=== PATIENT | male | born 1965 | race Caucasian/White ===

== ENCOUNTER 2021-12-06 17:21 | Emergency (ER) | payer BC, SELFPAY ==
[2021-12-06 17:38] VITALS: BP 146/96; PULSE 85; RESP 16; TEMP 37; O2SAT 95; BMI 30.3
--- NOTE | 2021-12-06 18:19 | ED.EAR ---
HPI - Ear Problem General Chief complaint: Ear Problems Stated complaint: left ear pain/bleeding Time Seen by Provider: 12/06/21 17:46 Source: patient Mode of arrival: ambulatory Limitations: no limitations History of Present Illness HPI Narrative: Patient is a 56-year-old male being evaluated for bleeding from the left ear and decreased hearing. He reports earlier today while inserting a Q-tip he had some initial discomfort and bleeding from the ear which subsided. Reports his hearing was fine throughout the day. Upon returning home today from work he developed bleeding again and significant decreased hearing to the left. Denies any past history of ruptured tympanic membrane. Denies prior concerns of pain or drainage from the ear. Denies fevers, chills, nasal congestion, sore throat, drainage or pain from the right ear. Related Data Previous Rx's Medication Instructions Recorded ciprofloxacin 0.3 %-dexamethasone 4 drp OTIC (EARS) Q12H 7 Days #7.5 12/06/21 0.1 % ear drops,suspension ml (Ciprodex) Allergies Allergy/AdvReac Type Severity Reaction Status Date / Time No Known Allergies Allergy Verified 12/06/21 17:43 Review of Systems Review of Systems: Constitutional: No weight loss, fever, chills, weakness or fatigue. Skin: No rash or itching. Ear: Left ear bloody drainage and decreased hearing Cardiovascular: No chest pain, chest pressure or chest discomfort. No palpitations or pedal edema. Respiratory: No shortness of breath, cough or sputum production. Gastrointestinal: No anorexia, nausea, vomiting or diarrhea. No abdominal pain. Genitourinary: No burning micturition. No urinary frequency or incontinence. Musculoskeletal: No muscle pain, back pain, joint pain or stiffness. Psychiatric: No depression or anxiety. Yes all other systems are reviewed and are negative [facility] Past Medical History Attestation statement: The following information was validated with the patient. Source: old records reviewed Medical History Hypertension Social History Social History Advance Directives: No Advance Directives Information Provided: No Physical Exam Vital Signs: Vital Signs: Last Vital Signs Temp 98.6 F 12/06/21 17:38 Pulse 85 12/06/21 17:38 Resp 16 12/06/21 17:38 BP 146/96 H 12/06/21 17:38 Pulse Ox 95 12/06/21 17:38 BMI result Body Mass Index 30.3 Vital signs have been reviewed and appeared to be correct. Blood pressure elevated 146/96? Heart rate normal.? Respiration rate normal. Temperature normal.? Oxygen saturation normal. Appearance: Alert.?Oriented to person, place and time. No acute distress.?Normal affect. Head: Normocephalic, atraumatic. No head, sinus or TMJ tenderness.? Eyes: Sclera white, conjunctiva pink. PERRL, 3 mm bilaterally. Ears: Left ear canal with bloody drainage, TM not visible suspect rupture. Right ear canal clear, TM visible with good cone of light.? Nose: Nasal mucosa pink and moist with midline septum, nares patent bilaterally.? Mouth/ Throat: Pharynx normal? Neck: Normal inspection.? Neck supple.?? CVS: Heart sounds normal. Normal heart rate and rhythm.? Pulses normal.?? Respiratory: No respiratory distress.? Lung sounds clear to auscultation bilaterally?? Abdomen: Soft and non-tender. ?? Skin: Skin warm and dry.? Normal skin color.? Normal skin turgor.?? Extremities: No lower extremity edema.? Neuro: Moves all extremities spontaneously. Sensation intact bilaterally. No focal neuro deficits. Ambulates with normal steady gait. Course Course Course Narrative: Patient is a 56-year-old male being evaluated for drainage from the left ear and decreased hearing. Physical exam consistent with ruptured tympanic membrane. Discussed plan of care for discharge home with new prescription for Ciprodex and discussed water avoidance precautions no swimming, and to insert the ear plug or cotton ball with Vaseline while showering to avoid water in the canal, reviewed not to insert object into the ear canal increases risk for potential reaction. Advised follow-up most will heal spontaneously in 4-6 weeks, however will have him follow-up with ENT specialist within 1 week. Discharge Plan Discharge Clinical Impression: Rupture of left tympanic membrane Patient Disposition: Home, Self-Care Instructions: Ruptured Eardrum (ED) Additional Instructions: You have ruptured your ear drum on the left side. Avoid swimming, use ear plugs or cotton ball with Vaseline to the left ear while showering to avoid water entering your ear canal. Use ear drops to left ear as prescribed and finish course. Please contact ear nose throat specialist Thursday morning to schedule follow-up appointment in 5 days. You may return to the emergency department with any new or worsening symptoms or concerns. Prescriptions: New ciprofloxacin-dexamethasone [Ciprodex] 0.3-0.1 % drops,suspension 4 drp otic (ears) Q12H 7 Days Qty: 7.5 0RF Referrals: Brennan Florentino [Physician] - 5 days Interventions: ED Discharge Assessment Last Done: 12/06/21 18:47 Discharge Date/Time: 12/06/21 18:49
== END 2021-12-06 18:49 | disposition home or self-care (01) ==
PROVIDERS: Emergency Provider Emergency Medicine
DX: H72.92 Unspecified perforation of tympanic membrane, left ear (principal); H92.02 Otalgia, left ear; I10 Essential (primary) hypertension
CPT/HCPCS: 99283

== ENCOUNTER 2023-12-05 07:10 | Emergency (ER) | payer BC, SELFPAY ==
--- NOTE | ~2023-12-05 | CT_ITS ---
CT TEMPORAL BONES WITHOUT IV CONTRAST INDICATION: Left ear pain/infection since September. COMPARISON: None available. TECHNIQUE: Multidetector CT acquisitions of the temporal bones was obtained without IV contrast. This CT examination was performed using dose optimization techniques as appropriate, variously including the following: *Automated exposure control *Adjustment of mA and/or kV according to patient size (this includes techniques or standardized protocols for targeted exams where dose is matched to indication/reason for exam; i.e. extremities or head) *Use of iterative reconstruction technique FINDINGS: Soft tissue nearly completely opacifies the left bony external auditory canal which should be correlated with direct visual inspection. This could reflect cerumen or other pathology. There is a small left mastoid tip effusion without bony erosion. The left middle ear cavity remains clear and there is retraction of the left tympanic membrane. The right mastoid air cells and the right middle ear cavity are clear. Degenerative changes involving the TMJs bilaterally. There is chronic traumatic deformity of the right lamina papyracea. Mild mucosal thickening throughout the imaged paranasal sinuses. There is leftward deviation of the nasal septum and there is a michael bullosa within the right middle turbinate. CT/CT mastoid IMPRESSION: - Soft tissue nearly completely opacifies the left bony external auditory canal which should be correlated with direct visual inspection. This could reflect cerumen or other pathology. There is a small left mastoid tip effusion without bony erosion. The left middle ear cavity remains clear and there is retraction of the left tympanic membrane. - The right mastoid air cells and the right middle ear cavity are clear. - Degenerative changes involving the TMJs bilaterally. - There is leftward deviation of the nasal septum and there is a michale bullosa within the right middle turbinate.
[2023-12-05 07:18] VITALS: BP 143/99; PULSE 87; RESP 18; TEMP 36.6; O2SAT 98; BMI 29.7
--- NOTE | 2023-12-05 09:19 | ED.EAR ---
HPI - Ear Problem General Chief complaint: Ear Problems Stated complaint: l ear issue Time Seen by Provider: 12/05/23 07:27 Source: patient Mode of arrival: ambulatory Limitations: no limitations History of Present Illness HPI Narrative: 58-year-old male presenting to the ER with complaints with complaints of left ear pain since the end of September. He reports he went to the urgent care 3 times since September and has been given the same prescription for the past 3 visits at the urgent care where he reports he was given amoxicillin plain amoxicillin with some drops he is unsure the name and he does not feel like they are working at this time. He is concerned due to he has been there 3 times and they continue to give him the same antibiotics despite them not working. He tried to call Dr. Florentino's ENT office although he can not get in until January. He also tried to call his PCP and they do not have any appointments. Denies Trauma; FB; FCS; Tinnitus; Trismus; Rash; H/A; Runny Nose; Dysphagia; Swelling; Bleeding; Cough; Focal Weakness, Numbness; Vertigo MD Complaint: ear pain and decreased hearing Location: left ear Duration: constant Severity: moderate Relieving factors: nothing Exacerbating factors: nothing Discharge from ear: no Associated symptoms ear: decreased hearing and external ear tenderness Treatment prior to arrival: eardrops and other (Patient was prescribed ear drops he is unsure the name and all amoxicillin 3 times in the past month from the urgent care which he has completely complete) Related Data Previous Rx's Medication Instructions Recorded ciprofloxacin 0.3 %-dexamethasone 4 drp otic (ears) Q12H 7 days #7.5 12/06/21 0.1 % ear drops,suspension mL (Ciprodex) amoxicillin-potassium clavulanate 1 tab PO BID otitis media 10 days 12/05/23 1,000 mg-62.5 mg tablet,ext.rel #20 tabs 12hr (Augmentin XR) ciprofloxacin 0.3 %-dexamethasone 4 drp otic (ear) left BID otitis 12/05/23 0.1 % ear drops,suspension externa 7 days #7.5 mL Allergies Allergy/AdvReac Type Severity Reaction Status Date / Time No Known Allergies Allergy Verified 12/05/23 07:21 Review of Systems Review of Systems: Constitutional : No Weight loss, No Fever, No Chills, No Night Sweats, No Fatigue, No Malaise ENT/Mouth : No Hearing loss, + Ear Pain, No Nasal Congestion, No Sinus Pain, No Hoarseness, No sore throat, No Rhinorrhea, No Swallowing Difficulty Eyes: No Eye Pain, No Swelling, No Redness, No Foreign Body, No Discharge, No Vision Changes Cardiovascular : No Chest Pain, No SOB, No Dyspnea on Exertion, No Orthopnea, No Edema, No Palpitations Respiratory : No Cough, No Sputum, No Wheezing, No Smoke Exposure, No Dyspnea Gastrointestinal : No Nausea, No Vomiting, No Diarrhea, No Constipation, No abdominal Pain, No Hematochezia, No Melena Genitourinary : no irregular bleeding, No Dysuria, No Urinary Frequency, No Hematuria, No Urinary Incontinence, No Urgency, No Flank Pain, No Urinary Flow Changes, No Hesitancy Musculoskeletal : No joint pain, No Myalgias, No Joint Swelling Skin : No Skin Lesions, No rash Neuro : No Weakness, No Numbness, No Paresthesias, No Loss of Consciousness, No Dizziness, No Headache Psych : No Anxiety/Panic, No Depression, No SI/HI/AH/VH, No Social Issues, Heme/Lymph: No Bruising, No Bleeding,No Lymphadenopathy Endocrine : No Polyuria, No Polydipsia, No Temperature Intolerance Yes all other systems are reviewed and are negative [facility] Past Medical History Attestation statement: The following information was validated with the patient. Source: old records reviewed and nursing notes reviewed Medical History Hypertension Social History Social History Advance Directives: No Advance Directives Information Provided: No Physical Exam Vital Signs: Vital Signs: Last Vital Signs Temp 97.8 F 12/05/23 07:18 Pulse 87 12/05/23 07:18 Resp 18 12/05/23 07:18 BP 143/99 H 12/05/23 07:18 Pulse Ox 98 12/05/23 07:18 O2 Del Method Room Air 12/05/23 07:18 BMI result Body Mass Index 29.7 Vital signs reviewed. Blood pressure normal. Pulse normal. Respiration normal. Oxygen normal. Temperature normal. Appearance: Alert. Oriented X3. No acute distress. Head: Normal external exam. Normocephalic. Atraumatic. Eyes: PERRLA. EOMI. Conjunctiva and sclera normal. Eyelids normal. ENT: EAC normal. Right TM's Normal. Left external ear canal mild erythematous with edema and fluffy exudate with cerumen consistent with otitis externa. Tympanic membrane intact no perforation noted. He did have some pinna and tragus tenderness. No mastoid tenderness. Pharynx normal. Uvula midline. Moist mucous membranes. No lesions/ulcerations or masses noted on the tongue. Normal voice. No trismus noted. No drooling noted. No muffled voice noted. Neck: Normal inspection. Neck supple. FROM. No adenopathy. Thyroid Normal. No meningeal signs. CVS: Normal heart rate and rhythm. Heart sound normal. Pulses normal throughout. No murmurs/rales/gallops. Respiratory: No respiratory distress. Painless inspiration. Back: Full range of motion noted. Skin: Skin warm and dry. Normal skin color. Normal skin turgor. No rashes/lesions/lacerations noted. Extremities: Extremities exhibit normal range of motion and nontender. Neuro: Oriented X 3. No motor deficit. No sensory deficit. Reflexes normal. Normal steady gait. No focal neuro deficits noted. CN's II-XII intact bilaterally? Vascular: + radial pulses. Normal cap refill. No cyanosis noted to upper extremity nails Course Course Course Narrative: 58-year-old male presenting to the ER with what appears like otitis externa and otitis media. No tympanic membrane perforation. Patient is nondiabetic. He did have tragus and pinna tenderness although no mastoid tenderness. He does have some could now edema mild. Some cerumen although no cerumen impaction. Neck is soft nontender with full range of motion no meningeal signs. I was also concerned for mastoiditis due to the timeframe of the patient's symptoms and tenderness over the tragus and the pinna this therefore CT was obtained for the mastoid which was negative for mastoiditis. H and P not consistent epidural abscess, malignant otitis externa, TMJ, meningitis. Therefore at this time patient will be discharged with Augmentin as he reports he has not had Augmentin along with Ciprodex drops with instructions to follow-up with PCP/ENT and to return if any new or worsening symptoms. Patient understands agrees with this plan Medical Decision Making Medical Decision Making MDM Narrative: see course Differential Diagnosis Differential Diagnoses: The differential diagnosis associated with the presentation includes see course Independent Interpretation I performed an independent interpretation of an: CT Scan (I reviewed the CT scan of the mastoid myself and agreeable with re-evaluate report no acute findings) Radiology Impression Discussion of test interpretation with radiology: I have reviewed the radiologist's reading. Radiologist Impression: FINDINGS: Soft tissue nearly completely opacifies the left bony external auditory canal which should be correlated with direct visual inspection. This could reflect cerumen or other pathology. There is a small left mastoid tip effusion without bony erosion. The left middle ear cavity remains clear and there is retraction of the left tympanic membrane. The right mastoid air cells and the right middle ear cavity are clear. Degenerative changes involving the TMJs bilaterally. There is chronic traumatic deformity of the right lamina papyracea. Mild mucosal thickening throughout the imaged paranasal sinuses. There is leftward deviation of the nasal septum and there is a michael bullosa within the right middle turbinate. CT/CT mastoid IMPRESSION: - Soft tissue nearly completely opacifies the left bony external auditory canal which should be correlated with direct visual inspection. This could reflect cerumen or other pathology. There is a small left mastoid tip effusion without bony erosion. The left middle ear cavity remains clear and there is retraction of the left tympanic membrane. - The right mastoid air cells and the right middle ear cavity are clear. - Degenerative changes involving the TMJs bilaterally. - There is leftward deviation of the nasal septum and there is a michael bullosa within the right middle turbinate. Independent Historian Patient, medical records and nurse's no External Record Review External record reviewed: Inpatient record, Office record, Outpatient record, Prior outpatient labs, Prior outpatient radiology, Primary care record and Outside ED record All prior labs/imaging/EKG and notes that are accessible in our system reviewed by myself Prescription Management I considered prescription management with: Antibiotic Social Determinants Patient?s care significantly limited by Social Determinants of Health including: Other Social Determinant of Health Discharge Plan Discharge Clinical Impression: Otitis externa, Otitis media Patient Disposition: Home, Self-Care Instructions: Otitis Externa (ED), Otitis Externa (DC) Prescriptions: New amoxicillin-pot clavulanate [Augmentin XR] 1,000-62.5 mg tablet extended release 12 hr 1 tab PO BID 10 Days Qty: 20 0RF ciprofloxacin-dexamethasone 0.3-0.1 % drops,suspension 4 drp otic (ear) left BID 7 Days Qty: 7.5 0RF No Action ciprofloxacin-dexamethasone [Ciprodex] 0.3-0.1 % drops,suspension 4 drp otic (ears) Q12H 7 Days Qty: 7.5 0RF Referrals: Emil De La Rosa MD [Primary Care Provider] - 1 day Stand Alone Forms: Work/School Release
[2023-12-05] MEDS: Amoxicillin/Potassium Clav 875 MG TABLET PO (10:10)
[2023-12-05 10:17] VITALS: BP 125/76; PULSE 66; RESP 16; TEMP 36.3
== END 2023-12-05 10:18 | disposition home or self-care (01) ==
PROVIDERS: Emergency Provider Emergency Medicine; PCP Family Medicine
DX: H60.92 Unspecified otitis externa, left ear (principal); H66.92 Otitis media, unspecified, left ear; H92.02 Otalgia, left ear
CPT/HCPCS: 70481; 99282; 99284

== ENCOUNTER 2025-01-20 15:39 | Emergency (ER) | payer OTHER, SELFPAY ==
--- NOTE | ~2025-01-20 | CT_ITS ---
CLINICAL HISTORY: left cheek dental pain ?cellulitis v abscess CT maxillofacial with contrast Comparison: None Findings: No acute fractures. No dislocations. Temporomandibular joints are intact. No periapical lucencies to suggest odontogenic abscesses. Air-fluid levels in the maxillary sinuses concerning for acute sinusitis. Orbital contents within normal limits. Visualized intracranial contents are within normal limits. No foreign bodies. IMPRESSION: 1. No evidence for odontogenic abscess. 2. Acute maxillary sinusitis. This document has been electronically signed by: Adan Fenton MD on 01/20/2025 20:08:50
[2025-01-20 16:04] VITALS: BP 133/70; PULSE 127; RESP 18; TEMP 37.6; O2SAT 95; BMI 30.3
--- NOTE | 2025-01-20 16:04 | ED_ITS ---
HPI - URI/Sore Throat General Chief Complaint: General Medical Stated Complaint: ? sinus infection Time Seen by Provider: 01/20/25 18:01 Source: patient and family () Mode of arrival: ambulatory Limitations: no limitations History of Present Illness ED Provider: SHANTELL CAMACHO PA-C HPI Narrative: 59-year-old male presents to the ED today for evaluation of left cheek pain/pressure x4-5 months. He has been evaluated for this by his PCP and dentist multiple times over the last few months. He has completed approximately 3-4 courses of amoxicillin. He was most recently seen by his PCP on 12/01/2024 who suspected a sinus infection and prescribed him a 7 day course of Augmentin which she took to completion followed by another 10 day course of Amoxicillin on 01/02/25. He has been trialing Flonase once daily without improvement. Reports having xrays completed by his dentist. He was reportedly told that there was too much inflammation around the area and they could definitively say if the tooth appeared infected. He does have a follow-up with an welding setter in two weeks. Reports waking up this morning with increasing pressure to the left cheek with associated headache. He has not noticed any swelling around his upper or lower teeth. No noted drainage. Denies any trauma or injury to the face. He reports subjective fevers this morning. Reports taking Tylenol around 1030 this morning. Denies chills, sore throat, difficulty swallowing or opening his mouth, ear pain/discharge. Related Data Previous Rx's ?Medication ?Instructions ?Recorded ciprofloxacin 0.3 %-dexamethasone 4 drp otic (ears) Q12H 7 days #7.5 12/06/21 0.1 % ear drops,suspension mL (Ciprodex) amoxicillin-potassium clavulanate 1 tab PO BID otitis media 10 days 12/05/23 1,000 mg-62.5 mg tablet,ext.rel #20 tabs 12hr (Augmentin XR) ciprofloxacin 0.3 %-dexamethasone 4 drp otic (ear) left BID otitis 12/05/23 0.1 % ear drops,suspension externa 7 days #7.5 mL clindamycin HCl 300 mg capsule 300 mg PO Q8H 7 days #21 caps 01/20/25 Allergies Allergy/AdvReac Type Severity Reaction Status Date / Time No Known Allergies Allergy Verified 01/20/25 16:06 Review of Systems 2 Review of Systems: Yes all other systems are reviewed and are negative [facility] Past Medical History Attestation statement: The following information was validated with the patient. Source: old records reviewed, obtained from family () and nursing notes reviewed Medical History Hypertension Social History Social History Alcohol intake: current Alcohol intake frequency: a few times a month Smoked in Last 30 Days: No Use of substances other than those prescribed or required for medical reasons: No Advance Directives: No Advance Directives Information Provided: Yes Do you have a plan to hurt others: No Plan Physical Exam 2 Vital Signs: Vital Signs: Last Vital Signs Temp 100.4 F 01/20/25 19:35 Pulse 109 H 01/20/25 19:35 Resp 16 01/20/25 19:35 BP 93/55 L 01/20/25 19:35 Pulse Ox 98 01/20/25 19:35 O2 Del Method Room Air 01/20/25 19:35 BMI result Body Mass Index 30.3 tachycardic, low grade temp of 99.7F General: well appearing, in no acute distress. Skin: Warm, dry, intact. No rashes or lesions. Head: Normocephalic, atraumatic. EENT: Hearing is intact b/l. Conjunctiva clear. PERRLA. EOM intact + No facial edema. Tongue and lips wnl. multiple dental caries and poor dentition. left upper/lower teeth without localized periapical swelling to the buccal or lingual ginginva. No pointing. No active bleeding/ discharge. TTP. No palpable fluctuance. + mild edema to buccal mucosa. no palpab le fluctuance + Posterior oropharynx without erythema/ edema. Uvula midline. Controlling secretions and speaking in complete sentences + No submandublar, submental or cervical LAD. no anterior neck swelling. Cardiac: Chest wall symmetric. RRR Lungs: Normal respiratory effort without accessory muscle use. CTA bilaterally Ext: Upper and lower extremities atraumatic, without tenderness, deformity, swelling or erythema Neuro: AOx3. Normal speech. Ambulating with steady gait. Psych: Appropriate mood and affect. Responds appropriately to questions. Course Course Course Narrative: This is an RME performed by Tru Bass CNP: Additional HPI, ROS, PE not included below will be deferred to primary provider. Patient is a 59-year-old male who presents emergency department for evaluation. Reports over the past 4- 5 months he has been experiencing pressure to his left cheek. Has been seen numerous times with his primary care doctor who believes this is a sinus infection as well as his dentist who believes is an abscess. He has been on approximately 3-4 courses of amoxicillin. Most recent courses being day course of Augmentin, followed by 01/02/2025 a 10 day course of amoxicillin. Has been using Flonase 1 spray once daily. The amoxicillin ultimately helps to some degree but never fully resolves his symptoms. He arrives emergency department tachycardic with a pulse of 127, temp of 99.7 degrees orally. Reports subjective fever earlier today Plan: Serum labs, viral serologies Reevaluation(s) Reevaluation #1: 3050- -- CBC without leukocytosis. There is a left shift. Chemistry without acute electrolyte abnormality requiring intervention. BUN mildly elevated to 19 with normal creatinine. Lactic acid WNL at 1.4. Liver function around baseline. Negative COVID, flu, RSV. > at this time, patient does not meet SIRS criteria for sepsis > Toradol ordered for pain, will cover for suspected facial cellulitis with Unasyn > CT facial bones pending 2128 -- CT facial bones showing acute maxillary sinusitis bilaterally. No evidence to suggest odontogenic abscess/infection. > discussed results with patient and his . Vitals have stabilized. He has received Toradol, Tylenol and Unasyn along with IV fluids. He is well-appearing and in no acute distress. I did discuss case with my attending physician Dr. Trevino who agrees with outpatient treatment with clindamycin. He does not meet criteria for inpatient treatment at this time. Patient and are agreeable with this plan. Antibiotic sent to pharmacy. Patient has remained stable throughout ED visit today. Discussed worrisome signs and symptoms and when to return to the ED. All questions answered at this time. Patient is agreeable with disposition and stable for discharge. Medications Administered Discontinued Medications Generic Name Dose Route Start Last Admin Trade Name Freq PRN Reason Stop Dose Admin Ampicillin Sodium/Sulbactam 100 mls @ 200 mls/hr 01/20/25 18:20 01/20/25 19:04 Sodium 3 gm/ Sodium Chloride IV 01/20/25 18:49 200 mls/hr ONCE ONE Administration Sodium Chloride 1,000 mls @ 999 mls/hr 01/20/25 18:45 01/20/25 19:00 Ns IV 01/20/25 19:45 999 mls/hr .Q1H1M DARRIN Administration Iohexol 100 ml 01/20/25 19:31 01/20/25 19:31 Iohexol 350 Mg/Ml 100 Ml Infus..Btl IV 01/20/25 19:32 85 ml ONCE ONE Administration Ketorolac Tromethamine 15 mg 01/20/25 18:18 01/20/25 19:01 Ketorolac Tromethamine 15 Mg/Ml Vial IVPUSH 01/20/25 18:19 15 mg ONCE ONE Administration Medical Decision Making Medical Decision Making [facility] Narrative: 59-year-old male presents to the ED today for evaluation of left cheek pain/pressure x4-5 months. on exam, no facial edema. Tongue and lips wnl. multiple dental caries and poor dentition. left upper/lower teeth without localized periapical swelling to the buccal or lingual ginginva. No pointing. No active bleeding/ discharge. TTP. No palpable fluctuance. mild edema to buccal mucosa. no palpable fluctuance. posterior oropharynx without erythema/edema. Uvula midline. Controlling secretions and speaking in complete sentences. no submandublar, submental or cervical LAD. no anterior neck swelling. Mildly tender to percussion over the left maxillary sinus. No tenderness to right maxillary sinus or frontal sinus. Differential diagnosis includes dental/ periapical abscess/infection, apthous stomatitis, facial cellulitis, facial abscess, sinusitis. Unlikely mono, herpes, sialadenitis, sialolithiasis, MAINTENA[employer]CE [employer] OIL FIELD, retropharyngeal abscess, deep neck infection, osteomyelitis, lymphoma, ludwigs angina. Labs, viral serology obtained from triage. Plan to review. CT facial bones added. Toradol ordered for discomfort. Unasyn ordered for coverage. IV fluids ordered. Differential Diagnosis Differential Diagnoses: The differential diagnosis associated with the presentation includes as above. Admission/Observation Consideration of admission/observation: Escalation of care including admission/observation considered Admission considered, he does not meet criteria for admission Lab Data MDM Lab Attestation statement: I reviewed the patient's lab results. as above. 01/20/25 16:59 01/20/25 16:59 Labs: Lab Results 01/20/25 Range/Units 16:59 WBC 10.5 (4.8-10.8) X10*3/uL RBC 5.56 (4.60-5.80) X10*6/uL Hgb 15.7 (14.0-18.0) g/dl Hct 44.7 (42.0-52.0) % MCV 80.4 (80.0-98.0) fL MCH 28.2 (27.0-33.0) pg MCHC 35.1 (31.0-36.0) g/dl RDW 13.5 (11.0-16.0) % Plt Count 144 L (160-400) X10*3/uL MPV 11.0 (9.4-12.4) fL Immature Gran % (Auto) 0.5 H (0.0-0.4) % Neut % (Auto) 88.7 H (45-73) % Lymph % (Auto) 3.0 L (20-40) % [place] % (Auto) 7.1 (2-11) % Eos % (Auto) 0.2 (0-4) % Baso % (Auto) 0.5 (0-2) % Lymph # (Auto) 0.3 L (1.2-4.9) X10*3/uL [place] # (Auto) 0.7 (0.1-1.2) X10*3/uL Eos # (Auto) 0.0 (0.0-0.4) X10*3/uL Baso # (Auto) 0.1 (0.0-0.2) X10*3/uL Abs Immat Gran (auto) 0.05 H (0.00-0.03) X10*3/uL Absolute Neuts (auto) 9.3 H (2.0-8.3) x10*3/uL Absolute Nucleated RBC 0.000 (0.0-0.012) X10*3/uL Nucleated RBC % (auto) 0.0 (0.0-0.2) /100WBC Sodium 138 (135-145) mmol/L Potassium 3.4 (3.3-5.1) mmol/L Chloride 103 (96-108) mmol/L Carbon Dioxide 23 (22-29) mmol/L Anion Gap 15 (12-20) BUN 19 H (9-16) mg/dL Creatinine 1.36 (0.5-1.4) mg/dL Estim Creat Clear Calc 75.0 Estimated GFR 54 Random Glucose 122 H (60-115) mg/dL Lactic Acid 1.4 (0.5-2.0) mmol/L Calcium 9.1 (8.4-10.2) mg/dL Total Bilirubin 1.2 H (0.0-1.0) mg/dL AST 29 (5-37) U/L ALT 49 H (0-40) U/L Alkaline Phosphatase 59 (39-117) U/L Total Protein 7.6 (6.5-8.0) g/dL Albumin 4.4 (3.5-5.0) g/dL Influenza Type A (PCR) NEGATIVE (Negative) Influenza Type B (PCR) NEGATIVE (Negative) RSV RNA Qual (PCR) NEGATIVE (Negative) SARS-CoV-2 RNA (RT-PCR) NEGATIVE (Negative) Independent Interpretation I performed an independent interpretation of an: CT Scan Interpretation: ct facial bones with air-fluid levels to bilateral maxillary sinuses Radiology Impression Discussion of test interpretation with radiology: I have reviewed the radiologist's reading. Radiologist Impression: Procedure(s): CT facial bones w IV con Accession Number(s): [id number] cc: Emil De aL Rosa MD; Shantell Camacho~ Report Number: [id number]: Total DLP = 378.00 mGy-cm CLINICAL HISTORY: left cheek dental pain ?cellulitis v abscess CT maxillofacial with contrast Comparison: None Findings: No acute fractures. No dislocations. Temporomandibular joints are intact. No periapical lucencies to suggest odontogenic abscesses. Air-fluid levels in the maxillary sinuses concerning for acute sinusitis. Orbital contents within normal limits. Visualized intracranial contents are within normal limits. No foreign bodies. IMPRESSION: 1. No evidence for odontogenic abscess. 2. Acute maxillary sinusitis. Independent Historian Clinical information obtained from an independent historian. History obtained from or confirmed by: Spouse () External Record Review External record reviewed: Inpatient record Prescription Management I considered prescription management with: Pain Medication and Antibiotic (Clindamycin) Social Determinants Patient?s care significantly limited by Social Determinants of Health including: Other Social Determinant of Health Critical Care Time Critical Care Time Critical Care Time: Yes Total Critical Care Time: 31 Attestation: Critical care time in the amount of 31 minutes has been provided to the patient in terms of direct patient care, frequent reevaluation, review and interpretation of medical data and results, and management of potentially life- threatening conditions. This is all outside of any medical procedures. Discharge Plan Discharge Clinical Impression: Acute maxillary sinusitis Patient Disposition: Home, Self-Care Instructions: Sinusitis (ED) Additional Instructions: Your blood work today is reassuring. You tested negative for COVID, flu, RSV. The CT scan of your face shows sinus infection to both sinuses. Treatment for this is with antibiotics. I am starting you on clindamycin. Take this 3 times daily (every 8 hours) for 7 day. You may take Tylenol and Motrin at home for pain/fever. Please follow up with your outpatient providers. Keep your appointment with your welding setter this month. Return with any new or worsening symptoms. In the case of an emergency call 911. Prescriptions: New clindamycin HCl 300 mg capsule 300 mg PO Q8H 7 Days Qty: 21 0RF No Action ciprofloxacin-dexamethasone [Ciprodex] 0.3-0.1 % drops,suspension 4 drp otic (ears) Q12H 7 Days Qty: 7.5 0RF amoxicillin-pot clavulanate [Augmentin XR] 1,000-62.5 mg tablet extended release 12 hr 1 tab PO BID 10 Days Qty: 20 0RF ciprofloxacin-dexamethasone 0.3-0.1 % drops,suspension 4 drp otic (ear) left BID 7 Days Qty: 7.5 0RF Referrals: Emil De La Rosa MD [Primary Care Provider] - Stand Alone Forms: Work/School Release Print Language: Lithuanian
--- NOTE | 2025-01-20 16:09 | ECG_ITS ---
Test Reason : TACHYCARDIA Blood Pressure : */* mmHG Vent. Rate : 121 BPM Atrial Rate : 121 BPM P-R Int : 178 ms QRS Dur : 90 ms QT Int : 302 ms P-R-T Axes : 27 -2 5 degrees QTcB Int : 428 ms Sinus tachycardia Inferior infarct , age undetermined Anterolateral infarct , age undetermined Abnormal ECG No previous ECGs available Referred By: Cassidy Bass Electronically Signed By: Williams Burger
[2025-01-20 17:05] LABS: MANUAL DIFF FLAG NO
[2025-01-20 17:22] LABS: Basophils Absolute Auto 0.1 X10*3/uL (0.0-0.2); Basophils Percent Auto 0.5 % (0-2); Eosinophils Percent Auto 0.2 % (0-4); Hematocrit 44.7 % (42.0-52.0); Hemoglobin 15.7 g/dl (14.0-18.0); Imm Gran Abs Auto 0.05 X10*3/uL (0.00-0.03); Imm Gran Pct Auto 0.5 % (0.0-0.4); Lymphocytes Absolute Auto 0.3 X10*3/uL (1.2-4.9); Mean Corpuscular HGB Conc 35.1 g/dl (31.0-36.0); Mean Corpuscular Hemoglobin 28.2 pg (27.0-33.0); Mean Corpuscular Volume 80.4 fL (80.0-98.0); Monocytes Absolute Auto 0.7 X10*3/uL (0.1-1.2); Monocytes Percent Auto 7.1 % (2-11); Neutrophils Absolute Auto 9.3 x10*3/uL (2.0-8.3); Neutrophils Percent Auto 88.7 % (45-73); Platelet Count 144 X10*3/uL (160-400); Red Blood Count 5.56 X10*6/uL (4.60-5.80); Red Cell Distribution Width 13.5 % (11.0-16.0); White Blood Count 10.5 X10*3/uL (4.8-10.8)
[2025-01-20 17:28] LABS: Lactic Acid 1.4 mmol/L (0.5-2.0)
[2025-01-20 17:29] LABS: Alanine Aminotransferase 49 U/L (0-40); Albumin Level 4.4 g/dL (3.5-5.0); Alkaline Phosphatase 59 U/L (39-117); Anion Gap 15 (12-20); Aspartate Amino Transferase 29 U/L (5-37); Bilirubin Total 1.2 mg/dL (0.0-1.0); Blood Urea Nitrogen 19 mg/dL (9-16); Calcium 9.1 mg/dL (8.4-10.2); Carbon Dioxide 23 mmol/L (22-29); Chloride 103 mmol/L (96-108); Estimated Glomerular Filt Rate 54; Glucose Random 122 mg/dL (60-115); Potassium 3.4 mmol/L (3.3-5.1); Sodium 138 mmol/L (135-145); Total Protein 7.6 g/dL (6.5-8.0)
[2025-01-20 18:17] LABS: Influenza A PCR NEGATIVE (Negative); Influenza B PCR NEGATIVE (Negative); Resp Syncy Virus RNA Qual PCR NEGATIVE (Negative); SARS COV2 PCR INHOUSE NEGATIVE (Negative)
[2025-01-20 18:29] VITALS: BP 122/82; PULSE 114; RESP 14; O2SAT 93
[2025-01-20] MEDS: 0.9 % Sodium Chloride 1,000 ML 999 ML IV (19:00)
[2025-01-20] MEDS: Ketorolac Tromethamine 15 MG/ML VIAL IVPUSH (19:01)
[2025-01-20] MEDS: Ampicillin Sodium/Sulbactam Na 3 GM in 0.9 % Sodium Chloride 100 ML IV (19:04)
--- NOTE | 2025-01-20 19:15 | PC.NURSE ---
Patient A&O x 4, ambulatory/ independent. Patient presented to the ED c/o of left facial pain, non radiating. Denies SOB. Pain rated 7/10, pain has been on going approx 4-5 months according to patient. Patient has been seen by PCP and dentist, ? sinus infection/ ? abscess. Patient has been prescribed ABT and flonase in the community, symptoms still increased. VSS except for being tachycardic. EKG performed, results showed sinus tach. CT Scan of face performed, results still pending. Patient has IV in left AC, currently running 1L NaCl. Patient received tordol for pain, effectiveness pending. Patient currently receiving ampicillin for possible infection. is currently at patient bedside.
[2025-01-20] MEDS: iohexoL 350 MG/ML 100 ML INFUS..BTL IV (19:31)
[2025-01-20 19:35] VITALS: BP 93/55; PULSE 109; RESP 16; TEMP 38; O2SAT 98
[2025-01-20 21:28] VITALS: BP 115/68; PULSE 96; RESP 16; TEMP 37.2; O2SAT 95
[2025-01-20] MEDS: Acetaminophen 325 MG TABLET 975 MG PO (21:53)
[2025-01-20 22:12] VITALS: BP 115/68; PULSE 96; RESP 16; TEMP 37.2; O2SAT 95
== END 2025-01-20 22:00 | disposition home or self-care (01) ==
PROVIDERS: Nurse Practitioner Family; Emergency Provider Emergency Medicine; PCP Family Medicine
DX: J01.00 Acute maxillary sinusitis, unspecified (principal); R51.9 Headache, unspecified; R00.0 Tachycardia, unspecified; Z03.818 Encounter for observation for suspected exposure to other biological agents ruled out
CPT/HCPCS: 0241U; 70487; 80053; 83605; 85025; 87040; 93005; 96374; 96375; 99284; 99285; J0295; J1885; Q9967

== ENCOUNTER → 2025-01-20 16:09 | Outpatient (BNV) | payer OTHER, SELFPAY | PROVIDERS: Emergency Provider Emergency Medicine; PCP Family Medicine; Visit Provider Internal Medicine Cardiovascular Disease | DX: R94.31 Abnormal electrocardiogram [ECG] [EKG] (principal); R00.0 Tachycardia, unspecified | CPT/HCPCS: 93010 ==

== ENCOUNTER → 2025-01-20 18:18 | Outpatient (BNV) | payer OTHER, SELFPAY | PROVIDERS: Emergency Provider Emergency Medicine; PCP Family Medicine; Visit Provider Radiology Diagnostic Radiology | DX: J01.00 Acute maxillary sinusitis, unspecified (principal) | CPT/HCPCS: 70487 ==

== ENCOUNTER 2025-02-27 14:15 | Emergency (ER) | payer OTHER, SELFPAY ==
--- NOTE | ~2025-02-27 | CT_ITS ---
CLINICAL HISTORY: sinus infection right CT sinuses without contrast Comparison: CT face from 01/20/2025. Findings: Mucosal thickening of the paranasal sinuses multifocal. Resolution of the previous maxillary air-fluid levels. Retention cysts of the right maxillary sinus measures 9 mm and likely of odontogenic origin. Imaged nasal bone deformities appear old/chronic. Anterior ethmoidal arteries are exposed. Soft tissue occlusion and osseous narrowing of the right maxillary infundibulum. Osseous narrowing of the left maxillary infundibulum. Multiple chronic lucencies of the nasal septum with partial right michael bullosa and redundant right middle terminate. Soft tissue narrowing of the sphenoethmoidal recesses and frontal ethmoidal recesses. Imaged mastoid air cells are well aerated. Metal artifacts noted. No acute intraconal stranding in either imaged orbit. IMPRESSION: 1. Improved aeration of the paranasal sinuses with resolution of the previous air-fluid levels of the maxillary sinuses compared to 01/20/2025. 2. Mucosal thickening of the paranasal sinuses persists. This document has been electronically signed by: Osman Vaughn MD on 02/27/2025 21:43:01
[2025-02-27 14:19] VITALS: BP 116/68; PULSE 111; RESP 17; TEMP 36.6; O2SAT 97; BMI 31.2
--- OUTSIDE RECORDS SUMMARY | 2025-02-27 19:02 | XMS_ITS | Patient Health Record ---
[facility] Address [address] [place] [address] [place] [address] Care Team Providers Care Process Control Operator Name Role Phone Jose Walsh MD Primary Care Provider Unavail able Ambreen Worrell Unavailable [phone] Reason For Referral No Information Problems Problem Type SNOMED Code ICD Code Onset Dates Problem Status W/U Status Risk Notes Problem Verruca plantaris (68177173) Verruca Plantaris (078.19) Active confirmed Problem Onychomycosis (582955667) Onychomycosis (110.1) Active confirmed Problem Pain in limb (14764623) Pain in Limb (729.5) Active confirmed Problem Tinea pedis (9412377) Tinea Pedis (110.4) Active confirmed Plan Of Treatment Pending Test Test Name Order Date *Liver Function Test (LFT) 03/31/2012 *Liver Function Test (LFT) 04/05/2012 [id number] Destruction, 1-14 03/31/2012 Insurance Providers Payer Name Payer Address Payer Phone Subscriber Number Group Number Insured Name Patient Relationship to Insured Coverage Start Date Coverage End Date [employer] [address] [place] [address] [id number] [employer]iera i Self - patient is the insured Medical (General) History Medical History History ICD Code asthma back, hip, knee pain
[2025-02-27 19:41] VITALS: BP 155/91; PULSE 73; RESP 18; TEMP 36.9; O2SAT 98
--- NOTE | 2025-02-27 20:12 | ED_ITS ---
HPI - General Adult General Chief complaint: General Medical Stated complaint: Sinus infection? Weak, Dizzy Time Seen by Provider: 02/27/25 19:22 Source: patient Limitations: no limitations History of Present Illness ED Provider: Adelaide David PA-C HPI narrative: 60-year-old male presents with sinus pain and pressure x2 days. Patient states he was treated for sinusitis January 20, he completed a course of clindamycin. His symptoms resolved, but then returned. Patient is having right-sided facial pain, pressure and swelling. When he woke this morning, his right upper lid was swollen and red. Denies ocular discharge or eye pain. Patient developed a fever at home took Tylenol pre arrival. Related Data Previous Rx's ?Medication ?Instructions ?Recorded ciprofloxacin 0.3 %-dexamethasone 4 drp otic (ears) Q12H 7 days #7.5 12/06/21 0.1 % ear drops,suspension mL (Ciprodex) amoxicillin-potassium clavulanate 1 tab PO BID otitis media 10 days 12/05/23 1,000 mg-62.5 mg tablet,ext.rel #20 tabs 12hr (Augmentin XR) ciprofloxacin 0.3 %-dexamethasone 4 drp otic (ear) left BID otitis 12/05/23 0.1 % ear drops,suspension externa 7 days #7.5 mL clindamycin HCl 300 mg capsule 300 mg PO Q8H 7 days #21 caps 01/20/25 clindamycin HCl 150 mg capsule 450 mg (3 x 150 mg) PO TID #90 caps 02/27/25 erythromycin 5 mg/gram (0.5 %) eye 0.5 inch ophthalmic-Left QID #3.5 02/27/25 ointment grams Allergies Allergy/AdvReac Type Severity Reaction Status Date / Time No Known Allergies Allergy Verified 02/27/25 14:20 Review of Systems 2 Review of Systems: Yes all other systems are reviewed and are negative Constitutional: Constitutional: Reports chills, Denies fatigue, Reports fever(s) and Reports malaise Eyes: Eyes: Denies irritation and Denies itchy eyes ENT: Reports nasal congestion, Reports sinus pain and Reports sinus pressure Respiratory: Respiratory: Denies cough Endocrine: Endocrine: Denies fatigue Allergic/Immunologic: Allergic/Immunologic: Denies itchy eyes PMFSH Past Medical History Attestation statement: The following information was validated with the patient. Medical History Hypertension Social History Social History Alcohol intake: current Alcohol intake frequency: holidays/special occasions only Smoked in Last 30 Days: No Use of substances other than those prescribed or required for medical reasons: No Advance Directives: No Advance Directives Information Provided: Yes Do you have a plan to hurt others: No Plan Physical Exam ED Vital Signs: Vital Signs - 24 hr 02/27/25 14:19 02/27/25 19:41 02/27/25 22:16 Temperature 98 F 98.5 F 98.3 F Pulse Rate 111 H 73 92 Respiratory Rate 17 18 18 Blood Pressure 116/68 155/91 H 133/93 H Pulse Oximetry 97 98 96 Oxygen Delivery Method Room Air Room Air Room Air BMI result Body Mass Index 31.2 Const Other: Alert well-appearing Orientation/consciousness: patient oriented x3 HENMT Other: Sounds congested when talking Eyes Other: Right upper lid is edematous and erythematous, the bulbar conjunctiva is not injected, no ocular discharge noted Resp Effort & Inspection: normal respiratory effort Cardio Other: Normal peripheral perfusion Skin Other: Warm dry no rash Neuro General: patient oriented x3, gait normal, no focal motor deficits and CN's II- XI intact bilaterally Psych Other: Cooperative Medical Decision Making Medical Decision Making MDM Narrative: 60-year-old male presents with sinus pain and pressure x2 days. Patient states he was treated for sinusitis January 20, he completed a course of clindamycin. His symptoms resolved, but then returned. Patient is having right-sided facial pain, pressure and swelling. When he woke this morning, his right upper lid was swollen and red. Denies ocular discharge or eye pain. Patient developed a fever at home took Tylenol pre arrival. No relevant chronic issues History: Per patient I have considered the following differential diagnoses: Acute sinusitis, conjunctivitis, blepharitis, viral syndrome, seasonal allergies Plan: I am concerned for recurrence of his sinusitis, I do feel the swelling of the upper lid is reactive from his likely infection. We will be ordering screening labs and repeating imaging. The patient is stable, no longer febrile, he will not require admission. I have independently reviewing the following tests: Labs: No overall white count, however left shift noted, no electrolyte abnormality CT max face:Findings: Mucosal thickening of the paranasal sinuses multifocal. Resolution of the previous maxillary air-fluid levels. Retention cysts of the right maxillary sinus measures 9 mm and likely of odontogenic origin. Imaged nasal bone deformities appear old/chronic. Anterior ethmoidal arteries are exposed. Soft tissue occlusion and osseous narrowing of the right maxillary infundibulum. Osseous narrowing of the left maxillary infundibulum. Multiple chronic lucencies of the nasal septum with partial right michael bullosa and redundant right middle terminate. Soft tissue narrowing of the sphenoethmoidal recesses and frontal ethmoidal recesses. Imaged mastoid air cells are well aerated. Metal artifacts noted. No acute intraconal stranding in either imaged orbit. IMPRESSION: 1. Improved aeration of the paranasal sinuses with resolution of the previous air-fluid levels of the maxillary sinuses compared to 01/20/2025. 2. Mucosal thickening of the paranasal sinuses persists. Lab Data 02/27/25 20:39 02/27/25 20:39 Labs: Lab Results 02/27/25 Range/Units 20:39 WBC 10.9 H (4.8-10.8) X10*3/uL RBC 5.21 (4.60-5.80) X10*6/uL Hgb 15.1 (14.0-18.0) g/dl Hct 42.0 (42.0-52.0) % MCV 80.6 (80.0-98.0) fL MCH 29.0 (27.0-33.0) pg MCHC 36.0 (31.0-36.0) g/dl RDW 13.2 (11.0-16.0) % Plt Count 161 (160-400) X10*3/uL MPV 10.3 (9.4-12.4) fL Immature Gran % (Auto) 0.4 (0.0-0.4) % Neut % (Auto) 77.1 H (45-73) % Lymph % (Auto) 10.5 L (20-40) % [place] % (Auto) 10.3 (2-11) % Eos % (Auto) 1.3 (0-4) % Baso % (Auto) 0.4 (0-2) % Lymph # (Auto) 1.1 L (1.2-4.9) X10*3/uL [place] # (Auto) 1.1 (0.1-1.2) X10*3/uL Eos # (Auto) 0.1 (0.0-0.4) X10*3/uL Baso # (Auto) 0.0 (0.0-0.2) X10*3/uL Abs Immat Gran (auto) 0.04 H (0.00-0.03) X10*3/uL Absolute Neuts (auto) 8.4 H (2.0-8.3) x10*3/uL Absolute Nucleated RBC 0.000 (0.0-0.012) X10*3/uL Nucleated RBC % (auto) 0.0 (0.0-0.2) /100WBC ESR 13 (0-15) MM/HR Sodium 140 (135-145) mmol/L Potassium 3.5 (3.3-5.1) mmol/L Chloride 102 (96-108) mmol/L Carbon Dioxide 25 (22-29) mmol/L Anion Gap 17 (12-20) BUN 16 (9-16) mg/dL Creatinine 1.24 (0.5-1.4) mg/dL Estim Creat Clear Calc 80.1 Estimated GFR 60 Random Glucose 114 (60-115) mg/dL Calcium 9.3 (8.4-10.2) mg/dL Magnesium 1.9 (1.6-2.6) mg/dL Total Bilirubin 0.9 (0.0-1.0) mg/dL AST 25 (5-37) U/L ALT 36 (0-40) U/L Alkaline Phosphatase 55 (39-117) U/L C-Reactive Protein 5.94 H (< or = 0.50) mg/dL Total Protein 7.5 (6.5-8.0) g/dL Albumin 4.5 (3.5-5.0) g/dL Discharge Plan Discharge Clinical Impression: Sinusitis, Mucous retention cyst of maxillary sinus, Stye Patient Disposition: Home, Self-Care Instructions: Sinusitis (ED), Stye (ED) Additional Instructions: You are being treated for sinusitis. You were also found to have retention cysts. You need to follow up with the ENT. I in providing you with a contact for an ENT group in [place]. You can call tomorrow to schedule an appointment. See home care instructions. Take the clindamycin as directed. Use the erythromycin as directed for the eyelid swelling, it may be a stye. It could also be reactive from your sinusitis. Apply warm compresses several times a day. [facility] [address] [phone] Prescriptions: New clindamycin HCl 150 mg capsule 450 mg PO TID Qty: 90 0RF erythromycin 5 mg/gram (0.5 %) ointment 0.5 inch ophthalmic-Left QID Qty: 3.5 0RF No Action ciprofloxacin-dexamethasone [Ciprodex] 0.3-0.1 % drops,suspension 4 drp otic (ears) Q12H 7 Days Qty: 7.5 0RF amoxicillin-pot clavulanate [Augmentin XR] 1,000-62.5 mg tablet extended release 12 hr 1 tab PO BID 10 Days Qty: 20 0RF ciprofloxacin-dexamethasone 0.3-0.1 % drops,suspension 4 drp otic (ear) left BID 7 Days Qty: 7.5 0RF clindamycin HCl 300 mg capsule 300 mg PO Q8H 7 Days Qty: 21 0RF Stand Alone Forms: Work/School Release Print Language: Swazi
[2025-02-27 20:43] LABS: MANUAL DIFF FLAG NO
[2025-02-27 20:44] LABS: Basophils Percent Auto 0.4 % (0-2); Eosinophils Absolute Auto 0.1 X10*3/uL (0.0-0.4); Eosinophils Percent Auto 1.3 % (0-4); Hemoglobin 15.1 g/dl (14.0-18.0); Imm Gran Abs Auto 0.04 X10*3/uL (0.00-0.03); Imm Gran Pct Auto 0.4 % (0.0-0.4); Lymphocytes Absolute Auto 1.1 X10*3/uL (1.2-4.9); Lymphocytes Percent Auto 10.5 % (20-40); Mean Corpuscular Volume 80.6 fL (80.0-98.0); Mean Platelet Volume 10.3 fL (9.4-12.4); Monocytes Absolute Auto 1.1 X10*3/uL (0.1-1.2); Monocytes Percent Auto 10.3 % (2-11); Neutrophils Absolute Auto 8.4 x10*3/uL (2.0-8.3); Neutrophils Percent Auto 77.1 % (45-73); Platelet Count 161 X10*3/uL (160-400); Red Blood Count 5.21 X10*6/uL (4.60-5.80); Red Cell Distribution Width 13.2 % (11.0-16.0); White Blood Count 10.9 X10*3/uL (4.8-10.8)
--- NOTE | 2025-02-27 20:46 | PC.NURSE ---
Iv placed in left AC, labs collected and sent.
[2025-02-27 20:57] LABS: Alanine Aminotransferase 36 U/L (0-40); Albumin Level 4.5 g/dL (3.5-5.0); Alkaline Phosphatase 55 U/L (39-117); Anion Gap 17 (12-20); Aspartate Amino Transferase 25 U/L (5-37); Bilirubin Total 0.9 mg/dL (0.0-1.0); Blood Urea Nitrogen 16 mg/dL (9-16); C Reactive Protein 5.94 mg/dL (< or = 0.50); Calcium 9.3 mg/dL (8.4-10.2); Carbon Dioxide 25 mmol/L (22-29); Chloride 102 mmol/L (96-108); Creatinine Clr Calc Pharmacy 80.1; Estimated Glomerular Filt Rate 60; Glucose Random 114 mg/dL (60-115); Magnesium 1.9 mg/dL (1.6-2.6); Potassium 3.5 mmol/L (3.3-5.1); Sodium 140 mmol/L (135-145); Total Protein 7.5 g/dL (6.5-8.0)
[2025-02-27 21:31] LABS: Erythrocyte Sedimentation Rate 13 MM/HR (0-15)
[2025-02-27 22:16] VITALS: BP 133/93; PULSE 92; RESP 18; TEMP 36.8; O2SAT 96
[2025-02-27] MEDS: Erythromycin Base 0.5% Oph Oin 1 GM TUBE 1 CM EYE-LEFT (23:07)
--- NOTE | 2025-02-27 23:08 | PC.NURSE ---
Medicated per mar no sign of distress, at this time
[2025-02-27 23:10] VITALS: BP 136/96; PULSE 87; RESP 18; TEMP 37.6; O2SAT 96
--- NOTE | 2025-02-27 23:14 | PC.NURSE ---
reviewed discharge instructions with pt, pt verbalized understanding, no sign of distress upon discharge.
[2025-02-27 23:16] VITALS: BP 136/96; PULSE 87; RESP 18; TEMP 37.6; O2SAT 96
== END 2025-02-27 23:17 | disposition home or self-care (01) ==
PROVIDERS: Physician Assistant Medical; Emergency Provider Internal Medicine; PCP Family Medicine
DX: R51.9 Headache, unspecified (principal); J32.9 Chronic sinusitis, unspecified; Z79.899 Other long term (current) drug therapy
CPT/HCPCS: 36415; 70486; 80053; 83735; 85025; 85652; 86140; 99284

== ENCOUNTER → 2025-02-27 19:44 | Outpatient (BNV) | payer OTHER, SELFPAY | PROVIDERS: Emergency Provider Internal Medicine; PCP Family Medicine; Visit Provider Radiology Neuroradiology | DX: J34.89 Other specified disorders of nose and nasal sinuses (principal) | CPT/HCPCS: 70486 ==